=== PATIENT | female | born 1970 | race Caucasian/White ===

== ENCOUNTER 2018-10-05 07:56 | Observation (INO) ==
--- NOTE | 2018-09-22 09:36 | Anesthesiology Consultation ---
Date of Service September 22, 2018 Assessment & Plan ASA ASA2 Proposed Anesthesia Anesthesia Type: General History Surgery Operation Date: 10/05/18 12:45 Proposed Procedures p L4-L5 Posterior Lumbar Decompression, L4-L5 Coflex - Jian Stahl DO Height/Weight Height: 5 ft 9 in Weight: 81.647 kg Allergies Allergy/AdvReac Type Severity Reaction Status Date / Time Penicillins Allergy Unknown Verified 09/18/18 10:04 Medications Home Medications Medication Instructions Recorded Confirmed Last Taken Probiotic 1 cap PO QAM 09/18/18 09/18/18 Unknown calcium carbonate-vitamin D3 1 cap PO QAM 09/18/18 09/18/18 Unknown [Calcium 600 + D(3)] coQ10 (ubiquinol) 200 mg PO QAM 09/18/18 09/18/18 Unknown ibuprofen 800 mg PO QID PRN 09/18/18 09/18/18 Unknown levothyroxine 150 mcg PO QAM 09/18/18 09/18/18 Unknown liothyronine 1.5 tab PO QAM 09/18/18 09/18/18 Unknown Past Medical History Medical History Chronic back pain Degenerative disc disease Hypothyroidism Obesity Temporomandibular joint disorder Past Surgical History Surgical History History of surgery procedure for TMJ under anesthesia - "flushed my joint" Past Anesthesia History No Hx of Anesthesia Complications and No Family Hx of Anesthesia Complications History of PONV No Motion Sickness Screening History of Motion Sickness: No Social History Smoking Status: Never smoker Do You Dip or Chew Tobacco: No Hx Alcohol Use: Yes Alcohol type: beer alcohol intake frequency: a few times a week Hx Substance Use: No substance use type: does not use Exercise / Class Metabolic Activity III < 4 Walking/Shop/Light housework Testing Electrocardiogram Date: 09/15/18 Findings: + NSR @ (at 62) Laboratory Results WBC: 6.2 Hc.6 Hct: 40.5 PLATELETS: 312 SODIUM: POTASSIUM: CHLORIDE: CO2: BUN: CREATININE: GLUCOSE: PT: 12.4 PTT: INR:1.0 UA: TYPE AND SCREEN:
[~2018-10-05 07:56] MED LIST: ACETAMINOPHEN 500 MG TAB PO SCH; CLINDAMYCIN 600 MG/54 ML BAG IV SCH; CeleBREX 200 MG CAP PO SCH; DEXAMETHASONE SOD INJ 4 MG/ML VIAL ONE; GABAPENTIN 300 MG x 3 PO SCH; GLYCOPYRROLATE 0.2 MG/ML VIAL ONE; HYDROmorphone INJ 2 MG/ML SYR/VIAL ONE; LIDOCAINE HCL 2% 2 ML VIAL/AMP(20MG/ML) INFIL ONE; LR 15ML/HR IV SCH; MIDAZOLAM HCL 1 MG/ML 2ML VIAL ONE; NEOSTIGMINE METHYLSULFATE 1 MG/ML 10ML VIAL ONE; ONDANSETRON INJ 2 MG/ML 2 ML VIAL ONE; PROPOFOL IV EMULSION 10 MG/ML 20 ML VIAL IV ONE; ROCURONIUM BROMIDE 10 MG/ML 5 ML VIAL ONE; fentaNYL citrate 100 MCG/2 ML VIAL ONE
[2018-10-05] MEDS ORDERED: HYDROmorphone INJ 2 MG/ML SYR/VIAL ONE (08:48)
[2018-10-05] MEDS ORDERED: fentaNYL citrate 100 MCG/2 ML VIAL ONE ×4 (08:48→12:18)
--- NOTE | 2018-10-05 10:20 | History & Physical Bridge Note ---
Date of Service October 05, 2018 History & Physical Bridge Note I have examined the patient, reviewed the History & Physical and in the interval since the performance of the History & Physical I have noted the following changes of clinical significance: no changes noted
--- NOTE | 2018-10-05 10:21 | History & Physical Report ---
Date of Service October 05, 2018 Assessment & Plan (1) Lumbar disc herniation with radiculopathy: Lumbar decompression L4-5 Coflex L4-5 Present on Admission?: Yes History of Present Illness Chief Complaint: Back and leg pain Primary Care Provider: NO PCP This is a 48-year-old female that presents with worsening back and leg pain. After failing extensive course of nonoperative care she is here for surgical intervention. Allergies Allergy/AdvReac Type Severity Reaction Status Date / Time Penicillins Allergy Unknown Verified 10/05/18 09:21 Home Medications Home Medications Medication Instructions Recorded Confirmed Type Probiotic 1 cap PO QAM 09/18/18 10/05/18 History calcium carbonate-vitamin D3 1 cap PO QAM 09/18/18 10/05/18 History [Calcium 600 + D(3)] coQ10 (ubiquinol) 200 mg PO QAM 09/18/18 10/05/18 History ibuprofen 800 mg PO QID PRN 09/18/18 10/05/18 History levothyroxine 150 mcg PO QAM 09/18/18 10/05/18 History liothyronine 1.5 tab PO QAM 09/18/18 10/05/18 History Past Med/Surg History Surgical History History of surgery procedure for TMJ under anesthesia - "flushed my joint" Social History Current Living Situation: Spouse Other Information That Helps Us Care for You: No Feels Safe at Home: Yes Safety Concerns: Feels Safe At This Time Smoking Status: Never smoker Do You Dip or Chew Tobacco: No Hx Alcohol Use: Yes Alcohol type: beer Alcohol Intake Frequency: a few times a week Hx Substance Use: No Beliefs That Will Affect Care: None Preferred Language: Czech Communication Ability: Effective Creche Attendant Required: No Physical Exam 2 Vital Signs (Past 24 Hours): Last Vital Signs Temp 36.6 C 10/05/18 09:26 Pulse 75 10/05/18 09:26 Resp 20 10/05/18 09:26 BP 147/81 H 10/05/18 09:26 Pulse Ox 98 10/05/18 09:26 Results & Data Medications Administered Acetaminophen (Tylenol) 1,000 mg PO PREOP MANSOOR Stop: 10/05/18 18:00 Last Admin: 10/05/18 09:51 Dose: 1,000 mg Gabapentin (Neurontin) 900 mg PO PREOP MANSOOR Stop: 10/05/18 18:00 Last Admin: 10/05/18 09:51 Dose: 900 mg Lactated Ringer's (Lr) 1,000 mls @ 15 mls/hr IV .Q24H MANSOOR Stop: 10/06/18 05:59 Last Admin: 10/05/18 09:10 Dose: 15 mls/hr
[2018-10-05] MEDS ORDERED: BUPIVACAINE/EPINEPHRINE 0.5% MPF 1:200,000 30 ML VIAL ONE (10:45)
[2018-10-05] MEDS ORDERED: BACITRACIN INJ 50,000 UNIT VIAL ONE (10:46)
[2018-10-05] MEDS ORDERED: ONDANSETRON INJ 2 MG/ML 2 ML VIAL IV PRN ×2 (10:54→14:00)
[2018-10-05] MEDS ORDERED: ATROPINE SULFATE 0.1 MG/ML 10ML SYR IV PRN (10:54)
[2018-10-05] MEDS ORDERED: PHENYLEPHRINE 100MCG/ML 5ML SYR ONE (12:00)
[2018-10-05] MEDS ORDERED: ROCURONIUM BROMIDE 10 MG/ML 5 ML VIAL ONE ×5 (12:00)
[2018-10-05] MEDS ORDERED: LARYING-O-JET KIT (LTA) ONE (12:06)
[2018-10-05] MEDS ORDERED: KETOROLAC 30 MG/ML VIAL ONE (12:06)
[2018-10-05] MEDS ORDERED: FLOSEAL HEMOSTATIC MATRIX 5ML TOP ONE (12:11)
--- NOTE | 2018-10-05 12:13 | Operative Report ---
Post Operative Report Pre & Post Diagnosis Operation Date: 10/05/18 10:25 Pre-Op Diagnosis: LUMBAR SPINAL STENOSIS W/NEUROGENIC CLAUDICATION Post-Op Diagnosis: LUMBAR SPINAL STENOSIS W/NEUROGENIC CLAUDICATION Procedure Operation Date: 10/05/18 10:25 Actual Procedures #1 lumbar decompression bilateral medial facetectomies with partial discectomy at L4-5. #2 placement of Coflex 14 mm implant at L4-5. Surgeon Jian Stahl DO Complaint Inspector Rosi Plaza Estimated Blood Loss 25 Findings Consistent with Post-Op Diagnosis Specimens None Description of Procedure Patient was met with preoperatively case discussed all questions addressed. After informed consent obtained patient was taken to the operative suite underwent intubation and placed in a prone position the Daniel table on top of the Mj frame. All bony prominences were well-padded eyes inspected to ensure no external pressure placed upon the. This point the lumbar spine was prepped and draped in a normal sterile fashion. Sharp dissection with the assistance Bovie cautery was performed down to and exposing the interlaminar space between L4-5. Self-retaining retractors placed. Then performed a midline decompression including bilateral medial facetectomies to address significant lateral recess stenosis. I was able to mobilize the traversing L5 nerve root medially and address large disc herniation at this level as well. After complete decompression and partial discectomy a 14 mm Coflex implant was tapped into position and crimped into place. Incision was then copious irrigated a 10 round BUD drain inserted. Was then closed with 1 Vicryl fascia 2- 0 Vicryl subtenons seen for Monocryl for final skin closure Steri-Strip sterile dressings placed. Patient will continue to PACU stable condition. Please note Rosi Plaza present at the entire procedure involved in patient positioning complex portions of the surgeon Miles closure. I attest to the content of the Intraoperative Record and any orders documented therein. Any exceptions are noted below.
[2018-10-05] MEDS: HYDROmorphone INJ 1 MG/ML SYRINGE IV PRN ×3 (12:55→13:05)
--- NOTE | 2018-10-05 12:59 | Fluoroscopy Report ---
FL spine 1V any level CLINICAL HISTORY: L4-L5 POSTERIOR LUMBAR DECOMPRESSION L4-L5 COFLEX COMPARISON STUDY: None. FLUOROSCOPY TIME: 5.2. FLUOROSCOPIC IMAGES: 1 FINDINGS: Lateral image demonstrates placement of an L4-L5 coflex device. Hardware is intact. There a re no unexpected radiopaque foreign bodies. IMPRESSION: Fluoroscopic image demonstrating placement of an L4-L5 coflex device. Electronically signed by: Lico Menon M.D. 10/05/2018 12:58 PM
--- NOTE | 2018-10-05 13:19 | Anesthesiology Progress Note ---
Date of Service October 05, 2018 Anesthesia Post Procedure Vital Signs Vital Signs: Temp Pulse Pulse Resp BP Pulse Ox 10/05/18 13:15 75 12 124/62 98 10/05/18 13:05 67 17 138/78 100 10/05/18 12:55 69 12 114/84 97 10/05/18 12:45 76 15 129/79 97 10/05/18 12:35 82 14 139/92 100 10/05/18 12:29 36.3 C L 80 19 124/81 100 10/05/18 09:26 36.6 C 75 20 147/81 H 98 Pain Intensity Left Leg: Pain Intensity: 2 Back: Pain Intensity: 3 Notes Mental Status: alert / awake / arousable Patient Amnestic to Procedure: Yes Nausea / Vomiting: adequately controlled Pain: adequately controlled Airway Patency, RR, SpO2: stable & adequate BP & HR: stable & adequate Hydration State: stable & adequate Anesthetic Complications: no major complications apparent
[2018-10-05] MEDS ORDERED: MAGNESIUM HYDROXIDE SUSP 30 ML UDC PO PRN (14:00)
[2018-10-05] MEDS ORDERED: HYDROmorphone INJ 1 MG/ML SYRINGE IV PRN (14:00)
[2018-10-05] MEDS ORDERED: ACETAMINOPHEN 500 MG TAB PO PRN (14:00)
[2018-10-05] MEDS ORDERED: OXYCODONE HCL IR 5 MG TAB (IMMEDIATE RELEASE) PO PRN (14:00)
[2018-10-05] MEDS ORDERED: DO NOT ADMINISTER FLU VACCINE PRN (14:00)
[2018-10-05] MEDS ORDERED: LORazepam 1 MG TAB PO PRN (14:00)
[2018-10-05] MEDS ORDERED: IBUPROFEN 800 MG TAB PO PRN (14:00)
[2018-10-05] MEDS ORDERED: LORazepam 1 MG/2 ML VIAL IV PRN (14:00)
[2018-10-05] MEDS ORDERED: DO NOT ADMINISTER PNEUMOCOCCAL VACCINE PRN (14:00)
[2018-10-05] MEDS: LACTATED RINGER'S 1,000 ML IV SCH (14:56)
[2018-10-05] MEDS: KETOROLAC 30 MG/ML VIAL IV PRN (16:15)
[2018-10-05] MEDS: CLINDAMYCIN 600 MG in DEXTROSE 5% 50 ML IV SCH (20:21)
[2018-10-05] MEDS: DOCUSATE SODIUM 100 MG CAP PO SCH (20:25)
[2018-10-06] MEDS: LACTATED RINGER'S 1,000 ML IV SCH (03:10)
[2018-10-06] MEDS: CLINDAMYCIN 600 MG in DEXTROSE 5% 50 ML IV SCH (03:19)
[2018-10-06] MEDS: KETOROLAC 30 MG/ML VIAL IV PRN ×2 (05:58→11:28)
[2018-10-06] MEDS ORDERED: LIOTHYRONINE SODIUM 5 MCG TAB PO SCH (06:30)
[2018-10-06] MEDS ORDERED: LEVOTHYROXINE SODIUM 150 MCG TABLET PO SCH (06:30)
[2018-10-06] MEDS ORDERED: LACTOBACILLUS ACIDOPHILUS (FLORANEX) TAB PO SCH (09:00)
[2018-10-06] MEDS ORDERED: CALCIUM 600MG + VIT D 400 IU TAB PO SCH (09:00)
[2018-10-06] MEDS: DOCUSATE SODIUM 100 MG CAP PO SCH (09:16)
--- NOTE | 2018-10-06 10:06 | Discharge Summary ---
Date of Service October 06, 2018 Admission HPI Per Admitting Provider This is a 48-year-old female that presents with worsening back and leg pain. After failing extensive course of nonoperative care she is here for surgical intervention. Principal Diagnosis Lumbar spinal stenosis with radiculopathy Discharge Data Allergies Allergy/AdvReac Type Severity Reaction Status Date / Time Penicillins Allergy Unknown Verified 10/05/18 09:21 Procedures Performed Operation Date: 10/05/18 10:25 Actual Procedures p L4-L5 Posterior Lumbar Decompression, L4-L5 Coflex(Not Applicable) - Jian Stahl DO Ordered Studies 10/05/18 10:25 FL fluoroscopy <1hr Routine FL spine 1V any level Routine Hospital Course (1) Lumbar disc herniation with radiculopathy: Patient underwent lumbar decompression Coflex placement L4-5. She tolerated as well as taken to the orthopedic floor postoperative. Postop day and when she was up and ambulate well. Left leg symptoms markedly improved. BUD drain decreasing appropriately. Subsequently discharged home. Discharge orders and instructions found in the chart for further review. Total Time Total Time Spent Total Time Spent (In Minutes): Not applicable Discharge Plan Discharge Items Patient Disposition: Home - Self-Care Reason For Visit: LUMBAR SPINAL STENOSIS W/NEUROGENIC CLAUDICATION Discharge Diagnosis: Lumbar spinal stenosis Discharge Goals: Improve function Activity: Per 'Additional Instructions' section Non-emergency contact: Primary Care Provider Call non-emergency contact if: you have any medication questions Follow-up/Referrals: PCP,NO [Primary Care Provider] - Diet: Regular Addtl Provider Instructions: ACTIVITY RECOMMENDATIONS: SELF CARE INSTRUCTIONS AFTER A LAMINECTOMY 1. No prolonged sitting (less than 30 minutes for the first 3 weeks after surgery). 2. No bending, lifting more than 5 pounds, or twisting (roll like a log when turning in bed). 3. You may shower 3 days after surgery if no drainage from wound. Thoroughly dry wound. Do not soak in the tub. 4. Please walk as much as you can for exercise. Gradually increase the distance that you walk as your endurance increases. 5. You may drive in 7-10 days if you are comfortable and no longer requiring pain medications. SPECIAL CARE INSTRUCTIONS: VERY IMPORTANT TO READ AND REVIEW A. Your surgical incision has been closed with a cosmetic suture under the skin that will dissolve in about 6 weeks. In 14 days, you can use a pair of clean scissors and cut the suture that is left outside of the skin at the ends of your incision. B. Complications are uncommon, but please contact us if you have any signs or symptoms of: 1. wound infection (fever higher than 102.5 degrees F, redness, separation of wound, drainage, or increasing pain from the incision) 2. blood clots in legs (pain, swelling, redness and warmth in legs) 3. urinary tract infection (fever higher than 102.5 degrees, burning upon urination or increased frequency of urination) 4. nerve problems (inability to walk on your toes or heels, numbness, loss of bowel or bladder control) 5. any other symptoms that concern you. C. Please call the office at if you have any concerns or questions about your operation or recovery. MANAGING PAIN AFTER SPINAL SURGERY 1. Narcotic medication is intended for short-term use and will be provided for surgical pain. Surgical pain usually lasts for a period of 4-6 weeks. Narcotic medication includes Percocet, Vicodin, Darvocet, Tylenol #3 or Lortab. 2. Longer-term pain is more appropriately treated with non-narcotic medication such as Tylenol ES. 3. Muscle spasm is not appropriately treated with narcotics. Muscle relaxers such as Soma, Flexeril or Skelaxin can be used along with Tylenol ES. 4. Remember that we all live with some "aches and pains". This is not unusual or uncommon after an injury or as we get older. 5. We will provide appropriate medication within the normal guidelines of their prescribed use. We will also be very cautious and aware of potential abuse and extended duration of patients' medication needs. 6. Please allow 2-3 days to process refills. Prescriptions will not be mailed but must be picked up at the office. FOLLOW UP VISIT: Keep your scheduled follow-up appointment. Any questions, please call the office at . Prescriptions: New oxycodone 5 mg Tablet 5 mg PO Q4H Qty: 30 RF: 0 Continue liothyronine 5 mcg Tablet 1.5 tab PO QAM RF: 0 levothyroxine 150 mcg Tablet 150 mcg PO QAM RF: 0 calcium carbonate-vitamin D3 [Calcium 600 + D(3)] 600 mg calcium- 200 unit Capsule 1 cap PO QAM RF: 0 coQ10 (ubiquinol) 200 mg Capsule 200 mg PO QAM RF: 0 Probiotic 1 cap PO QAM RF: 0 ibuprofen 800 mg Tablet 800 mg PO QID PRN (Reason: Pain) RF: 0 Stand-Alone Forms: [facility] Discharge Orders: Discharge Order (Routine); Ordered 10/06/18 Ordered By: Jian Stahl Admission Data Admit Date/Time: 10/05/18 13:39 Attending Provider: Jian Stahl Admit Provider: Jian Stahl Primary Care Provider: PCP,EMILE Service: Surgical Services Other Interventions: Discharge Summary Assessment (RN) Last Done: 10/06/18 09:52
[2018-10-07] MEDS ORDERED: BISACODYL 5 MG TABEC PO PRN (06:00)
[2018-10-07] MEDS ORDERED: POLYETHYLENE (MIRALAX) 17 GM PACK PO SCH (09:00)
== END 2018-10-06 12:11 | disposition home or self-care (01) ==
LOC: 3E 07:56 → ASU 07:56